=== PATIENT | female | born 1995 | race Two or more races ===

== ENCOUNTER 2019-01-15 21:30 | Emergency (ER) ==
[~2019-01-15] VITALS: Ht 160 cm; Wt 59.9 kg
[2019-01-15 21:47] VITALS: BP 130/65
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
--- NOTE | 2019-01-15 23:35 | NUR ---
URINE SENT TO STAT LAB
--- NOTE | 2019-01-15 23:49 | NUR ---
PT TAKEN TO RADIOLOGY VIA
[2019-01-16] MEDS ORDERED: IBUPROFEN 600 MG TABLET PO ONE ×2 (01:00→01:01)
[2019-01-16] MEDS ORDERED: HYDROCODONE/APAP 5/325MG 1 EACH TABLET PO ONE (01:00)
[2019-01-16] MEDS ORDERED: HYDROCODONE/APAP 5/325MG 1 EACH TABLET ONE (01:01)
--- NOTE | 2019-01-16 01:37 | NUR ---
Patient discharged to home in stable condition. Written and verbal after care instructions given. Patient verbalizes understanding of instruction. PT AMBULATORY WITH STEADY GAIT.
== END 2019-01-16 01:59 | disposition home or self-care (01) ==
LOC: ER 21:35
DX: S39.012A Strain of muscle, fascia and tendon of lower back, initial encounter (principal); S20.212A Contusion of left front wall of thorax, initial encounter; S60.222A Contusion of left hand, initial encounter; S09.8XXA Other specified injuries of head, initial encounter; V49.49XA Driver injured in collision with other motor vehicles in traffic accident, initial encounter; Y93.89 Activity, other specified; Y92.413 State road as the place of occurrence of the external cause; Y99.8 Other external cause status
CPT/HCPCS: 70450-TC; 71100-TC; 72110-TC; 73130-TC; 84703-TC